=== PATIENT | male | born 1970 | race Caucasian/White ===

== ENCOUNTER 2016-08-15 19:33 | Inpatient (IN) | payer OTHER ==
[2016-08-15] MEDS ORDERED: NS 1,000 ML IV ONE (19:49)
--- NOTE | 2016-08-15 19:53 | EDPHY ---
H & P Stated Complaint: on cefdenir for cough, symptoms worsening Time Seen by Provider: 08/15/16 19:44 HPI/ROS: CHIEF COMPLAINT: Cough, fever HISTORY OF PRESENT ILLNESS: The patient presents to the ED with a one-week history of worsening cough and fever. The patient was clinically diagnosed with pneumonia approximately a week ago after having 2 weeks of cough. 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 The patient was started on cefdinir and has been on that for the past week without improvement. The patient complains of fever, myalgias, worsening dyspnea and fatigue. The patient does have a history of a 16 day hospitalization for pneumonia in 2012. He has not been treated for pneumonia with antibiotics since that hospitalization. The patient denies abdominal pain, vomiting or diarrhea. The patient denies additional complaints. The patient has moderate to severe dyspnea. In reviewing the patient's past medical records, the patient did have a pneumonia complicated by parapneumonic effusion during his hospitalization in 2012. The patient was treated with a chest tube as well as broad-spectrum antibiotics during that hospitalization. REVIEW OF SYSTEMS: A comprehensive 10 point review of systems is otherwise negative aside from elements mentioned in the history of present illness. Source: Patient Exam Limitations: No limitations - Personal History Current Tetanus/Diphtheria Vaccine: No Tetanus Vaccine Date: 2006 - Medical/Surgical History Hx Asthma: No Hx Chronic Respiratory Disease: No Hx Diabetes: No Hx Cardiac Disease: No Hx Renal Disease: No Hx Cirrhosis: No Hx Alcoholism: No Hx HIV/AIDS: No Hx Splenectomy or Spleen Trauma: No Other PMH: PMHx: pnuemonia with thoracentesis, thoracotomy 01/2013, sinus invertus, "internal organ reversal". PSHx: no other - Social History Smoking Status: Never smoked - Physical Exam Exam: General Appearance: Ill-appearing male, mild respiratory distress Eyes: Pupils equal and round no pallor or injection ENT, Mouth: Mucous membranes moist Respiratory: Tachypnea, rhonchorous breath sounds particularly at the left lung base, decreased breath sounds left lung base Cardiovascular: Tachycardic Gastrointestinal: Abdomen is soft and nontender, no masses, bowel sounds normal Neurological: A&O, normal motor function, normal sensory exam, normal cranial nerves Skin: Warm and dry, no rashes Musculoskeletal: Neck is supple nontender Extremities: symmetrical, full range of motion Psychiatric: Patient is oriented X 3, there is no agitation Constitutional: Initial Vital Signs Temperature (C) 39.4 C H 08/15/16 19:36 Heart Rate 124 H 08/15/16 19:36 Respiratory Rate 14 08/15/16 19:36 Blood Pressure 140/81 H 08/15/16 19:36 O2 Sat (%) 90 L 08/15/16 19:36 O2 Delivery Mode Room Air Allergies/Adverse Reactions: No Known Allergies Allergy (Unverified 01/07/13 23:52) Home Medications: Medication Instructions Recorded Cefdinir [Omnicef (*)] 600 mg PO DAILY 08/15/16 Medical Decision Making - Diagnostics EKG Interpretation: EKG: Complete interpretation has been separately recorded in the [facility] archive. Summary impression: Sinus tachycardia, rate 122 Imaging Results: Chest x-ray PA lateral: Images reviewed by myself, situs inversus noted, left lower lobe pneumonia. ED Course/Re-evaluation: The patient presents to emergency department with worsening fever, cough and dyspnea. The patient was noted be acutely hypoxemic upon arrival. The patient was placed on a air sampling and monitoring and received supplemental oxygen. I reviewed the patient's past medical records including his hospitalization from 2012. The patient's chest x-ray demonstrates evidence of a left lower lobe pneumonia. The patient had blood cultures x2 obtained. The patient will be started on vancomycin and Zosyn. The patient's initial venous lactate is reassuring at 1.3. Given the patient's hypoxemia, tachycardia and worsening symptoms while on appropriate oral antibiotics I do feel he should be admitted to the hospital for further evaluation. Consultation is made with Dr. Palma from the hospitalist service who will admit the patient this evening. The patient does have evidence of sepsis with SIRS (the tachycardia, leukocytosis and fever) + infection (pneumonia). There is no evidence of end- organ dysfunction, severe sepsis or septic shock. Differential Diagnosis: Differential diagnosis considered includes pneumonia, sepsis, severe sepsis, influenza, empyema - Data Points Laboratory Results: Laboratory Results 08/15/16 19:57 08/15/16 19:57 08/15/16 08/15/16 08/15/16 20:10 19:57 19:57 WBC 11.67 10^3/uL H 10^3/uL (3.80-9.50) RBC 4.35 10^6/uL L 10^6/uL (4.40-6.38) Hgb 12.9 g/dL L g/dL (13.7-17.5) Hct 39.4 % L % (40.0-51.0) MCV 90.6 fL fL (81.5-99.8) MCH 29.7 pg pg (27.9-34.1) MCHC 32.7 g/dL g/dL (32.4-36.7) RDW 13.5 % % (11.5-15.2) Plt Count 451 10^3/uL H 10^3/uL (150-400) MPV 9.0 fL fL (8.7-11.7) Neut % (Auto) 77.3 % H % (39.3-74.2) Lymph % (Auto) 11.1 % L % (15.0-45.0) [place] % (Auto) 7.2 % % (4.5-13.0) Eos % (Auto) 3.3 % % (0.6-7.6) Baso % (Auto) 0.4 % % (0.3-1.7) Nucleat RBC Rel Count 0.0 % % (0.0-0.2) Absolute Neuts (auto) 9.02 10^3/uL H 10^3/uL (1.70-6.50) Absolute Lymphs (auto) 1.30 10^3/uL 10^3/uL (1.00-3.00) Absolute Monos (auto) 0.84 10^3/uL H 10^3/uL (0.30-0.80) Absolute Eos (auto) 0.38 10^3/uL 10^3/uL (0.03-0.40) Absolute Basos (auto) 0.05 10^3/uL 10^3/uL (0.02-0.10) Absolute Nucleated RBC 0.00 10^3/uL 10^3/uL (0-0.01) Immature Gran % 0.7 % % (0.0-1.1) Immature Gran # 0.08 10^3/uL 10^3/uL (0.00-0.10) VBG Lactic Acid 1.3 mmol/L mmol/L (0.7-2.1) Sodium Potassium Chloride Carbon Dioxide Anion Gap BUN Creatinine Estimated GFR Glucose Calcium Influenza A & B (PCR) Pending 08/15/16 19:57 WBC RBC Hgb Hct MCV MCH MCHC RDW Plt Count MPV Neut % (Auto) Lymph % (Auto) [place] % (Auto) Eos % (Auto) Baso % (Auto) Nucleat RBC Rel Count Absolute Neuts (auto) Absolute Lymphs (auto) Absolute Monos (auto) Absolute Eos (auto) Absolute Basos (auto) Absolute Nucleated RBC Immature Gran % Immature Gran # VBG Lactic Acid Sodium 141 mEq/L mEq/L (134-144) Potassium 3.8 mEq/L mEq/L (3.5-5.2) Chloride 97 mEq/L mEq/L (97-110) Carbon Dioxide 29 mEq/l mEq/l (22-31) Anion Gap 15 mEq/L mEq/L (8-16) BUN 12 mg/dL mg/dL (7-23) Creatinine 0.9 mg/dL mg/dL (0.7-1.3) Estimated GFR > 60 Glucose 108 mg/dL H mg/dL (70-100) Calcium 9.0 mg/dL mg/dL (8.5-10.4) Influenza A & B (PCR) Medications Given: Discontinued Medications Sodium Chloride (Ns) 1,000 mls @ 0 mls/hr IV ONCE ONE PRN Reason: Wide Open Stop: 08/15/16 19:50 Last Admin: 08/15/16 20:14 Dose: 1,000 mls Departure - Departure Disposition: [facility] Inpatient Acute Clinical Impression: Pneumonia, Situs inversus, Sepsis Condition: Fair
--- NOTE | 2016-08-15 20:01 | CPEKG ---
Heart Rate: 122 RR Interval: 492 P-R Interval: 140 QRSD Interval: 90 QT Interval: 316 QTC Interval: 451 P Mcqueeney: 57 QRS Mcqueeney: 109 T Wave Mcqueeney: 48 EKG Severity - BORDERLINE ECG - EKG Impression: SINUS TACHYCARDIA EKG Impression: PROBABLE LEFT ATRIAL ABNORMALITY EKG Impression: CONSIDER RIGHT VENTRICULAR HYPERTROPHY Electronically Signed By: Nash Flores 15-Aug-2016 20:30:52
[2016-08-15 20:09] LABS: % IMMATURE GRANULYOCYTES 0.7 % (0.0-1.1); ABSOLUTE IMMATURE GRANULOCYTES 0.08 10^3/uL (0.00-0.10); ADD DIFF? NO; ADD MORPH? NO; ADD SCAN? NO; ATYPICAL LYMPHOCYTE FLAG 40 (0-99); FRAGMENT RBC FLAG 0 (0-99); HEMATOCRIT 39.4 % (40.0-51.0); HEMOGLOBIN 12.9 g/dL (13.7-17.5); LEFT SHIFT FLG 10 (0-99); LIPEMIA HEMOLYSIS FLAG 80 (0-99); MEAN CELL HEMOGLOBIN 29.7 pg (27.9-34.1); MEAN CELL HEMOGLOBIN CONCENTR. 32.7 g/dL (32.4-36.7); MEAN CELL VOLUME 90.6 fL (81.5-99.8); PLATELET CLUMPS FLAG 0 (0-99); PLATELET COUNT 451 10^3/uL (150-400); RED BLOOD CELL COUNT 4.35 10^6/uL (4.40-6.38); RED CELL DISTRIBUTION WIDTH 13.5 % (11.5-15.2)
[2016-08-15] MEDS ORDERED: VANCOMYCIN HCL/NORMAL SALINE 250 ML IV ONE (20:11)
[2016-08-15] MEDS ORDERED: PIPERACILLIN/TAZO 4.5 GM/DEX 100 ML IV ONE (20:11)
[2016-08-15] MEDS ORDERED: ACETAMINOPHEN 500 MG TAB ONE (20:16)
[2016-08-15] MEDS ORDERED: ACETAMINOPHEN 500 MG TAB PO ONE (20:29)
[2016-08-15 20:36] LABS: ANION GAP 15 mEq/L (8-16); CARBON DIOXIDE 29 mEq/l (22-31); CHLORIDE 97 mEq/L (97-110); CREATININE 0.9 mg/dL (0.7-1.3); GLOMERULAR FILTRATION RATE > 60; GLUCOSE 108 mg/dL (70-100); POTASSIUM 3.8 mEq/L (3.5-5.2); SODIUM 141 mEq/L (134-144)
[2016-08-15] MEDS ORDERED: AZITHROMYCIN IV 500 MG in D5W 250 ML IV SCH (21:00)
[2016-08-15] MEDS ORDERED: ONDANSETRON 4 MG/2 ML VIAL IVP PRN (21:05)
[2016-08-15] MEDS ORDERED: ONDANSETRON DISINTEGRATING 4 MG TAB PO PRN (21:05)
[2016-08-15] MEDS ORDERED: ALBUTEROL 3 ML DEYVIAL IH PRN (21:05)
[2016-08-15] MEDS ORDERED: NS 1,000 ML IV SCH (21:15)
--- NOTE | 2016-08-15 21:32 | GHP ---
[f rep st] HISTORY AND PHYSICAL DATE OF ADMISSION: 08/15/2016 CHIEF COMPLAINT: Shortness of breath and cough. HISTORY OF PRESENT ILLNESS: This is a 45-year-old male with a history of situs inversus and multipl e pneumonias, including a severe empyema several years ago. He states that 2 weeks ago, he was deve loping more sinus/upper respiratory tract type symptoms. His family had similar symptoms. He went to see his primary care doctor about a week ago who thought he had a sinus infection and he was star oracio on Omnicef. He states that he felt somewhat better after that, but then started developing feve rs and chills today. He has been coughing more over the last week. He does have sputum production. He has little bit of left-sided pleuritic chest pain which has resolved. He has had fevers and ch ills. He is feeling somewhat short of breath. REVIEW OF SYSTEMS: A 10-point review of systems was obtained, and other than as stated above, was n egative. PAST MEDICAL HISTORY: 1. Situs inversus. 2. Multiple episodes of pneumonia. SOCIAL HISTORY: No smoking or alcohol. 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 FAMILY HISTORY: Positive for diabetes with his mother. PHYSICAL EXAM: VITAL SIGNS: Temperature is 39.4, blood pressure 140/81, heart rate 124 oxygen satu ration is 90% on room air. GENERAL: The patient is well developed, in no apparent distress. HEENT : Nonicteric sclerae. Extraocular movements intact. Moist mucous membranes. NECK: Supple. No t hyromegaly. LUNGS: Good effort and some rhonchi especially on the left. CARDIOVASCULAR: Regular rate and rhythm. No murmurs or gallops. ABDOMEN: Positive bowel sounds. Soft, nontender, nondist ended. No hepatosplenomegaly. EXTREMITIES: No clubbing, cyanosis, or edema. SKIN: Without rash. Dry, intact. NEUROLOGIC: Alert and oriented x3. Moving all 4 extremities equally. PSYCH: Norm al mood and affect. LABS: White blood cell count is 11 with platelets of 451, hemoglobin 12.9. Lactate is normal. Samaria gary is also normal. Influenza is pending. Chest x-ray, personally reviewed and interpreted, shows situs inversus and what looks like an early right lower lobe pneumonia. ASSESSMENT: This is a 45-year-old male who presents with community-acquired pneumonia who has faile d outpatient treatment. PLAN: 1. Community-acquired pneumonia. The patient was treated with Omnicef, but not treated for atypica ls. He also started off with more sinus issues. Therefore, we will treat with both Invanz to add m ore anaerobic coverage, as well as azithromycin for atypical coverage. At this point, I do not thin k we should start with vancomycin. 2. Sepsis. The patient's lactate is normal, but he is tachycardic and has a fever. We will give I V fluids and continue to monitor. 3. Situs inversus. Apparently, this has predisposed him to multiple pneumonias. ADMISSION: Patient will be admitted under full admission status. The case was discussed with the E R physician. Old records were reviewed and summarized in the HPI. Chest x-ray was personally revie wed and interpreted. /[id number]/MODL
[2016-08-15] MEDS: ERTAPENEM 1 GM in NS 100 ML IV SCH (21:47)
[2016-08-15] MEDS: guaiFENesin 600 MG TAB.ER PO SCH (22:00)
[2016-08-15] MEDS: IBUPROFEN 200 MG TAB PO PRN (22:00)
[2016-08-15] MEDS: AZITHROMYCIN IV 500 MG in D5W 250 ML IV SCH (22:48)
[2016-08-16] MEDS: HYDROCODONE/APAP 5/325 TAB PO PRN ×2 (03:44→07:33)
[2016-08-16 05:38] LABS: % IMMATURE GRANULYOCYTES 0.7 % (0.0-1.1); ABSOLUTE IMMATURE GRANULOCYTES 0.06 10^3/uL (0.00-0.10); ADD DIFF? NO; ADD MORPH? NO; ADD SCAN? NO; ATYPICAL LYMPHOCYTE FLAG 30 (0-99); FRAGMENT RBC FLAG 0 (0-99); HEMATOCRIT 33.9 % (40.0-51.0); HEMOGLOBIN 10.6 g/dL (13.7-17.5); LEFT SHIFT FLG 10 (0-99); LIPEMIA HEMOLYSIS FLAG 80 (0-99); MEAN CELL HEMOGLOBIN CONCENTR. 31.3 g/dL (32.4-36.7); MEAN CELL VOLUME 92.9 fL (81.5-99.8); MEAN PLATELET VOLUME 9.5 fL (8.7-11.7); PLATELET CLUMPS FLAG 10 (0-99); PLATELET COUNT 365 10^3/uL (150-400); RED BLOOD CELL COUNT 3.65 10^6/uL (4.40-6.38); RED CELL DISTRIBUTION WIDTH 13.8 % (11.5-15.2)
[2016-08-16 06:00] LABS: ALANINE AMINOTRANSFERASE 146 IU/L (21-72); ALBUMIN 3.1 g/dL (3.5-5.0); ALKALINE PHOSPHATASE 200 IU/L (38-126); ANION GAP 10 mEq/L (8-16); ASPARTATE AMINOTRANSFERASE 57 IU/L (17-59); BILIRUBIN,TOTAL 0.5 mg/dL (0.1-1.4); CALCIUM 8.3 mg/dL (8.5-10.4); CARBON DIOXIDE 28 mEq/l (22-31); CHLORIDE 106 mEq/L (97-110); CREATININE 0.9 mg/dL (0.7-1.3); GLOMERULAR FILTRATION RATE > 60; GLUCOSE 88 mg/dL (70-100); POTASSIUM 4.3 mEq/L (3.5-5.2); SODIUM 144 mEq/L (134-144); TOTAL PROTEIN 6.3 g/dL (6.3-8.2)
--- NOTE | 2016-08-16 09:04 | HOSPPROG ---
Hospitalist Progress Note Assessment/Plan: # pneumonia - flu positive - start tamiflu - hx R sided empyema requiring CT in 2013 - cont tx for CAP # Kartagener's/Situs inversus # elevated LFTS - likely d/t above - recheck tomorrow # anemia, chronic and stable # sepsis - resolved ## chart reviewed CXR personally reviewed Subjective: maybe feeling better than yesterday; L pleuritic CP; ongoing cough Objective: Vital Signs Temp Pulse Resp BP Pulse Ox 36.9 C 93 16 105/71 96 08/16/16 07:51 08/16/16 07:51 08/16/16 07:51 08/16/16 07:51 08/16/16 07:51 Laboratory Results 08/16/16 04:18 08/16/16 04:18 08/15/16 08/16/16 08/17/16 05:59 05:59 05:59 Intake Total 800 Output Total 350 Balance 450 - Physical Exam Constitutional: no apparent distress, appears nourished Cardiovascular: regular rate and rhythym, no murmur, rub, or gallop, other (R sided heart sounds) Respiratory: no respiratory distress, other (diffuse bilat rhonchi; L basilar tubular breath sounds) Gastrointestinal: normoactive bowel sounds, soft, non-tender abdomen, no palpable masses ICD10 Worksheet Patient Problems: Problems Problem Status Onset Pneumonia Acute Situs inversus Acute Sepsis Acute
[2016-08-16] MEDS: ERTAPENEM 1 GM in NS 100 ML IV SCH (10:06)
[2016-08-16] MEDS: ENOXAPARIN 40 MG/0.4 ML SYR SC SCH (10:07)
[2016-08-16] MEDS: guaiFENesin 600 MG TAB.ER PO SCH ×2 (10:07→21:15)
[2016-08-16] MEDS: OSELTAMIVIR PHOSPHATE 75 MG CAP PO SCH ×2 (10:08→18:02)
[2016-08-16] MEDS: ACETAMINOPHEN 325 MG TAB PO PRN (15:37)
[2016-08-16] MEDS ORDERED: NS 1,000 ML IV SCH (16:00)
[2016-08-16] MEDS ORDERED: IOPAMIDOL (ISOVUE 370) 100 ML BTL IV ONE (16:01)
[2016-08-16] MEDS: AZITHROMYCIN IV 500 MG in D5W 250 ML IV SCH (21:15)
[2016-08-17] MEDS: HYDROCODONE/APAP 5/325 TAB PO PRN (00:08)
[2016-08-17] MEDS: IBUPROFEN 200 MG TAB PO PRN (04:29)
[2016-08-17 04:56] LABS: % IMMATURE GRANULYOCYTES 0.7 % (0.0-1.1); ABSOLUTE IMMATURE GRANULOCYTES 0.07 10^3/uL (0.00-0.10); ADD DIFF? NO; ADD MORPH? NO; ADD SCAN? NO; ATYPICAL LYMPHOCYTE FLAG 80 (0-99); FRAGMENT RBC FLAG 0 (0-99); HEMATOCRIT 32.5 % (40.0-51.0); HEMOGLOBIN 10.6 g/dL (13.7-17.5); LEFT SHIFT FLG 10 (0-99); LIPEMIA HEMOLYSIS FLAG 80 (0-99); MEAN CELL HEMOGLOBIN 29.7 pg (27.9-34.1); MEAN CELL HEMOGLOBIN CONCENTR. 32.6 g/dL (32.4-36.7); PLATELET CLUMPS FLAG 0 (0-99); PLATELET COUNT 346 10^3/uL (150-400); RED BLOOD CELL COUNT 3.57 10^6/uL (4.40-6.38); RED CELL DISTRIBUTION WIDTH 13.7 % (11.5-15.2)
[2016-08-17 05:22] LABS: ALANINE AMINOTRANSFERASE 122 IU/L (21-72); ALBUMIN 3.2 g/dL (3.5-5.0); ALKALINE PHOSPHATASE 192 IU/L (38-126); ANION GAP 9 mEq/L (8-16); ASPARTATE AMINOTRANSFERASE 44 IU/L (17-59); BILIRUBIN,TOTAL 0.5 mg/dL (0.1-1.4); CALCIUM 8.4 mg/dL (8.5-10.4); CARBON DIOXIDE 29 mEq/l (22-31); CHLORIDE 102 mEq/L (97-110); CREATININE 0.9 mg/dL (0.7-1.3); GLOMERULAR FILTRATION RATE > 60; GLUCOSE 94 mg/dL (70-100); POTASSIUM 4.5 mEq/L (3.5-5.2); SODIUM 140 mEq/L (134-144); TOTAL PROTEIN 6.2 g/dL (6.3-8.2)
[2016-08-17] MEDS: OSELTAMIVIR PHOSPHATE 75 MG CAP PO SCH ×2 (07:26→18:27)
[2016-08-17] MEDS: guaiFENesin 600 MG TAB.ER PO SCH ×2 (07:26→20:28)
[2016-08-17] MEDS: ERTAPENEM 1 GM in NS 100 ML IV SCH (07:26)
[2016-08-17] MEDS: ENOXAPARIN 40 MG/0.4 ML SYR SC SCH (07:27)
[2016-08-17] MEDS: ACETAMINOPHEN 325 MG TAB PO PRN ×3 (07:41→19:21)
--- NOTE | 2016-08-17 10:14 | HOSPPROG ---
Hospitalist Progress Note Assessment/Plan: # pneumonia - suspect influenza and bacterial - bronchiectasis on CT - hx R sided empyema requiring CT in 2013 - cont tamiflu and CAP treatment - will d/w pulm # Kartagener's/Situs inversus # elevated LFTS - likely d/t influenza - recheck tomorrow # anemia, chronic and stable # sepsis - resolved Subjective: overall feels better, but ongoing L pleuritic pain Objective: Vital Signs Temp Pulse Resp BP Pulse Ox 36.6 C 79 16 117/73 93 08/17/16 07:44 08/17/16 07:44 08/17/16 07:44 08/17/16 07:44 08/17/16 07:44 Microbiology 08/16/16 20:29 - Final Sputum, Expectorated 08/16/16 00:10 Respiratory Panel (PCR) - Final Nasal, Sinus - Swab Influenza Virus Type B Laboratory Results 08/17/16 04:26 08/17/16 04:26 08/16/16 08/17/16 08/18/16 05:59 05:59 05:59 Intake Total 800 1285 Output Total 350 Balance [address] personally reviewed CXR personally reviewed - Physical Exam Constitutional: uncomfortable Cardiovascular: regular rate and rhythym, no murmur, rub, or gallop, other (R sided S1S2) Respiratory: no respiratory distress, no rales or rhonchi, clear to auscultation Gastrointestinal: normoactive bowel sounds, soft, non-tender abdomen, no palpable masses ICD10 Worksheet Patient Problems: Problems Problem Status Onset Pneumonia Acute Situs inversus Acute Sepsis Acute
[2016-08-17] MEDS: IPRATROPIUM/ALBUTEROL 3 ML DEYVIAL IH SCH ×2 (12:35→17:56)
[2016-08-17] MEDS: ACETYLCYSTEINE 20% IH/PO 30 ML VIAL IH SCH ×2 (12:46→17:54)
[2016-08-17] MEDS: AZITHROMYCIN IV 500 MG in D5W 250 ML IV SCH (20:28)
[2016-08-18] MEDS: IPRATROPIUM/ALBUTEROL 3 ML DEYVIAL IH SCH ×3 (00:11→10:49)
[2016-08-18 05:03] LABS: % IMMATURE GRANULYOCYTES 0.7 % (0.0-1.1); ABSOLUTE IMMATURE GRANULOCYTES 0.07 10^3/uL (0.00-0.10); ADD DIFF? NO; ADD MORPH? NO; ADD SCAN? NO; ATYPICAL LYMPHOCYTE FLAG 50 (0-99); FRAGMENT RBC FLAG 0 (0-99); HEMATOCRIT 35.3 % (40.0-51.0); HEMOGLOBIN 11.5 g/dL (13.7-17.5); LEFT SHIFT FLG 0 (0-99); LIPEMIA HEMOLYSIS FLAG 80 (0-99); MEAN CELL HEMOGLOBIN 29.4 pg (27.9-34.1); MEAN CELL HEMOGLOBIN CONCENTR. 32.6 g/dL (32.4-36.7); MEAN CELL VOLUME 90.3 fL (81.5-99.8); MEAN PLATELET VOLUME 9.1 fL (8.7-11.7); PLATELET CLUMPS FLAG 0 (0-99); PLATELET COUNT 433 10^3/uL (150-400); RED BLOOD CELL COUNT 3.91 10^6/uL (4.40-6.38); RED CELL DISTRIBUTION WIDTH 13.5 % (11.5-15.2)
[2016-08-18 05:10] LABS: ALANINE AMINOTRANSFERASE 123 IU/L (21-72); ALBUMIN 3.3 g/dL (3.5-5.0); ALKALINE PHOSPHATASE 222 IU/L (38-126); ANION GAP 9 mEq/L (8-16); ASPARTATE AMINOTRANSFERASE 50 IU/L (17-59); BILIRUBIN,TOTAL 0.4 mg/dL (0.1-1.4); CALCIUM 8.8 mg/dL (8.5-10.4); CARBON DIOXIDE 27 mEq/l (22-31); CHLORIDE 104 mEq/L (97-110); CREATININE 0.8 mg/dL (0.7-1.3); GLOMERULAR FILTRATION RATE > 60; GLUCOSE 94 mg/dL (70-100); POTASSIUM 4.4 mEq/L (3.5-5.2); SODIUM 140 mEq/L (134-144); TOTAL PROTEIN 6.9 g/dL (6.3-8.2)
[2016-08-18] MEDS: ACETYLCYSTEINE 20% IH/PO 30 ML VIAL IH SCH ×3 (05:45→14:01)
[2016-08-18] MEDS: ERTAPENEM 1 GM in NS 100 ML IV SCH (07:55)
[2016-08-18] MEDS: ENOXAPARIN 40 MG/0.4 ML SYR SC SCH (07:56)
[2016-08-18] MEDS: guaiFENesin 600 MG TAB.ER PO SCH (07:56)
[2016-08-18] MEDS: OSELTAMIVIR PHOSPHATE 75 MG CAP PO SCH (07:56)
[2016-08-18] MEDS: ACETAMINOPHEN 325 MG TAB PO PRN (07:56)
[2016-08-18 08:00] VITALS: RESP 18
[2016-08-18 11:19] VITALS: BP 130/68; PULSE 90; TEMP 98.4; O2SAT 95
--- NOTE | 2016-08-18 14:23 | GDS ---
[f rep st] DISCHARGE SUMMARY DIAGNOSES: 1. Community-acquired pneumonia. 2. Kartagener syndrome/situs inversus. 3. Bronchiectasis. 4. Elevated LFTs. 5. Anemia. 6. Sepsis. 7. Influenza B. HOSPITAL COURSE: A 45-year-old man with a history of Kartagener's as well as a right-sided empyema which required VATS decortication about 4 years ago. Presents with a left-sided pneumonia. This is associated with some pleuritic pain. He was treated with azithromycin, as well as Invanz with significant clinical improvement. Notably, he also had a positive influenza PCR, has also been treated with Tamiflu. We attempter multiple modes of pulmonary hygiene including percussion vest, mucomyst, mucinex. He did not tolerate any of these very well. On the day of discharge, he is feeling better. He still has some left-sided pleuritic pain, but it has been slowly improving. I informally discussed him with both Dr. Akers as well as Dr. Reilly (Dr. Reilly has seen him as an outpatient), and Dr. Reilly is willing to see him next week. I have given the patient Dr. Reilly's information to make a followup appointment with him. I will discharge him with a somewhat prolonged course of treatment for community- acquired pneumonia, as I believe that there is a bacterial component to this. I will give him a total of 14 days of antibiotics since he started IV antibiotics as an inpatient. He will be discharged to complete a course of Levaquin. I have also given him Tamiflu to complete a total of a 5-day course. I offered to keep him in the hospital longer given his history but he is anxious for discharge. I wrote a prescription for him to get a followup chest x-ray prior to seeing Dr. Reilly. He should do this the day before. I also wrote him a note excusing him for work. DISPOSITION: He is discharged home in stable condition. BILLING: I spent more than 30 minutes on the day of discharge coordinating care. /[id number]/MODL MTDD
== END 2016-08-18 15:58 | disposition home or self-care (01) | DRG 871 ==
LOC: F3E 21:15
PROVIDERS: ADMIT Internal Medicine; ATTEND Student in an Organized Health Care Education/Training Program
DX: A41.89 Other specified sepsis (principal); J10.08 Influenza due to other identified influenza virus with other specified pneumonia; J15.9 Unspecified bacterial pneumonia; B97.89 Other viral agents as the cause of diseases classified elsewhere; Q89.3 Situs inversus; J47.9 Bronchiectasis, uncomplicated; D64.9 Anemia, unspecified; Z87.01 Personal history of pneumonia (recurrent)
CPT/HCPCS: 87449-90; 96374; J0456; J1335; J1650; J2543; J3370; Q9967

== ENCOUNTER → 2016-08-26 | Outpatient (CLI) | payer OTHER | LOC: FIMAGING 10:31 | PROVIDERS: ATTEND Student in an Organized Health Care Education/Training Program | DX: Z09 Encounter for follow-up examination after completed treatment for conditions other than malignant neoplasm (principal); Q89.3 Situs inversus ==

== ENCOUNTER → 2016-11-10 | Outpatient (CLI) | payer OTHER | LOC: FIMAGING 10:57 | PROVIDERS: ATTEND Internal Medicine Pulmonary Disease | DX: J47.9 Bronchiectasis, uncomplicated (principal); J90 Pleural effusion, not elsewhere classified; Q89.3 Situs inversus ==

== ENCOUNTER 2018-03-19 12:07 | Day surgery (SDC) | payer OTHER ==
[2018-03-19] MEDS ORDERED: LR 1,000 ML IV ONE (12:25)
[2018-03-19] MEDS ORDERED: ALBUTEROL 3 ML DEYVIAL IH ONE (12:25)
[2018-03-19] MEDS ORDERED: LIDOCAINE 1% 300 MG/30 ML SDV ONE (12:44)
[2018-03-19] MEDS ORDERED: EPINEPHrine 1 MG/ML INJ ONE (12:44)
[2018-03-19] MEDS ORDERED: MIDAZOLAM 2 MG/2 ML VIAL ONE (13:16)
[2018-03-19] MEDS ORDERED: fentaNYL 100 MCG/2 ML INJ ONE (13:16)
[2018-03-19] MEDS ORDERED: fentaNYL 100 MCG/2 ML INJ IVP ONE (13:47)
[2018-03-19] MEDS ORDERED: MIDAZOLAM 2 MG/2 ML VIAL IVP ONE (13:47)
[2018-03-19] MEDS ORDERED: LIDOCAINE 1% 300 MG/30 ML SDV MISC ONE (13:52)
[2018-03-19] MEDS ORDERED: LIDOCAINE HCL 4% TOPICAL SOLN 50ML MM ONE (13:53)
[2018-03-19 15:44] VITALS: BP 102/66
--- NOTE | 2018-03-20 06:32 | GPN ---
PROCEDURE: Bronchoscopy. INDICATION: New left upper lobe infiltrate in a patient with situs inversus and bronchiectasis. He has a history of previous pneumonias and empyema. He was recently on ciprofloxacin for purulent coug h and sputum. This was associated with a posterior left upper lobe pleural rub. A CT scan was thus obtained which showed the new infiltrate. This procedure is being done to provide a bacteriologic di agnosis. PROCEDURE NOTE: The procedure was performed in the endoscopy unit. Informed consent was obtained fr om the patient. Appropriate time-out was performed. N95 masks were worn. A negative pressure room was used. Topical anesthesia included 4 mL of 4% lidocaine to the posterior oropharynx and approximately 25 mL of 1% lidocaine to the vocal cords, trachea and lower tracheobronchial tree. Conscious sedation incl uded 5 mg of Versed and 125 mcg of fentanyl. The fiberoptic bronchoscope was passed via bite block orally into the larynx. The vocal cords were i dentified and cannulated. The bronchoscope was then advanced into the trachea and in the lower trach eobronchial tree bilaterally. There were loose purulent secretions found in the distal trachea and i n the lower tracheobronchial tree bilaterally. These were removed with suction and lavage and combin ed. Bronch wash/bronchoalveolar lavage samples from the left upper lobe area were obtained. Because of his situs inversus, this actually had the anatomy of a standard right upper lobe. Following wash ing and lavage, a sterile brush biopsy sample was obtained from left upper lobe segments. Following this, a cytology brush biopsy sample was obtained from the same upper lobe segments. Appropriate cul tures and cytologies were sent. The patient tolerated the procedure well. There were no complications. Oxygen saturations on supple mental oxygen and vital signs remained normal throughout the procedure. IMPRESSION: 1. Reversed anatomy consistent with situs inversus is present. 2. No endobronchial abnormalities are present. 3. Purulent secretions were found bilaterally. Appropriate microbiologic and cytologic samples were obtained. /[id number]/MODL
== END 2018-03-19 15:40 | disposition home or self-care (01) ==
LOC: FSGY 12:07
PROVIDERS: ATTEND Internal Medicine Pulmonary Disease
DX: Q89.3 Situs inversus (principal); J47.9 Bronchiectasis, uncomplicated; Z87.01 Personal history of pneumonia (recurrent); R09.89 Other specified symptoms and signs involving the circulatory and respiratory systems
CPT/HCPCS: J0171; J2250; J3010; J7613

== ENCOUNTER → 2018-04-21 | Outpatient (CLI) | payer OTHER | LOC: FIMAGING 11:53 | PROVIDERS: ATTEND Internal Medicine Pulmonary Disease | DX: J18.9 Pneumonia, unspecified organism (principal); J47.9 Bronchiectasis, uncomplicated; Q89.3 Situs inversus ==

== ENCOUNTER → 2018-07-09 | Outpatient (CLI) | payer OTHER | LOC: FIMAGING 07:55 | PROVIDERS: ATTEND Internal Medicine Pulmonary Disease | DX: J47.9 Bronchiectasis, uncomplicated (principal) ==

== ENCOUNTER 2018-10-10 13:23 | Emergency (ER) | payer OTHER ==
--- NOTE | 2018-10-10 13:49 | EDPHY ---
HPI/HX/ROS/PE/MDM Narrative: CHIEF COMPLAINT: "I have pneumonia" HPI: The patient is a 48-year-old male with a history of situs inversus and frequent pneumonias related to same. His last antibiotic course was approximately three months ago. He just returned from a trip to [place] and began to develop symptoms that he reports as typical of pneumonia as he was returning home, namely fever, chills, right-sided chest tightness and productive cough. He denies leg swelling. REVIEW OF SYSTEMS: Aside from elements discussed in the HPI, a comprehensive 10-point review of systems was reviewed and is negative. PMH: Kartagener's syndrome, frequent PNA SOCIAL HISTORY: . Lives in [place]. PHYSICAL EXAM: General:Patient is alert, in no acute distress. ENT:Eyes are normal to inspection. ENT inspection normal. Neck: Normal inspection. Full range of motion. Respiratory:No respiratory distress. Breath sounds normal bilaterally. Cardiovascular: Tachycardic. Strong peripheral pulses. Normal cap refill. Heart sounds reversed. Abdomen:The abdomen is nontender to palpation. There are no peritoneal signs. There are normal bowel sounds. Back: Normal to inspection. No tenderness to palpation. Skin: Normal color. No rash. Warm and dry. Extremities: Normal appearance. Full range of motion. Neuro: Oriented x3. Normal motor function. Normal sensory function. MDM: This patient has a history of recurrent pneumonia and presents to the ER today with the same. He states that Augmentin seems to be the only antibiotic that works for him. His lactate is normal which is reassuring. His room air saturation is right around 90-92% on my re-evaluation. I did offer him admission to the hospital for IV antibiotics and close monitoring, but he would prefer to try and go home and see if he can improve things with oral antibiotics. Given recent travel, I considered PE, but given the patient's history of frequent pneumonia, fever an obvious infiltrate on x-ray, I think this is much less likely. The patient is comfortable with plan for discharge home after a dose of IV Unasyn here in the ED. - Data Points Laboratory Results: Laboratory Results 10/10/18 13:50 10/10/18 13:50 10/10/18 10/10/18 10/10/18 13:50 13:50 13:50 WBC 25.93 10^3/uL H 10^3/uL (3.80-9.50) RBC 4.20 10^6/uL L 10^6/uL (4.40-6.38) Hgb 12.7 g/dL L g/dL (13.7-17.5) Hct 37.4 % L % (40.0-51.0) MCV 89.0 fL fL (81.5-99.8) MCH 30.2 pg pg (27.9-34.1) MCHC 34.0 g/dL g/dL (32.4-36.7) RDW 13.2 % % (11.5-15.2) Plt Count 343 10^3/uL 10^3/uL (150-400) MPV 9.2 fL fL (8.7-11.7) Neut % (Auto) Pending Lymph % (Auto) Pending [place] % (Auto) Pending Eos % (Auto) Pending Baso % (Auto) Pending Nucleat RBC Rel Count Pending Absolute Neuts (auto) Pending Absolute Lymphs (auto) Pending Absolute Monos (auto) Pending Absolute Eos (auto) Pending Absolute Basos (auto) Pending Absolute Nucleated RBC Pending Immature Gran % Pending Immature Gran # Pending Platelet Estimate Pending VBG Lactic Acid 1.1 mmol/L mmol/L (0.7-2.1) Sodium 133 mEq/L L mEq/L (135-145) Potassium 4.0 mEq/L mEq/L (3.5-5.2) Chloride 99 mEq/L mEq/L (97-110) Carbon Dioxide 24 mEq/l mEq/l (22-31) Anion Gap 10 mEq/L mEq/L (6-14) BUN 13 mg/dL mg/dL (7-23) Creatinine 1.0 mg/dL mg/dL (0.7-1.3) Estimated GFR > 60 Glucose 111 mg/dL H mg/dL (70-100) Calcium 8.8 mg/dL mg/dL (8.5-10.4) Medications Given: Discontinued Medications Acetaminophen (Tylenol) 1,000 mg PO EDNOW ONE Stop: 10/10/18 14:01 Last Admin: 10/10/18 14:04 Dose: 1,000 mg Sodium Chloride (Ns) 1,000 mls @ 0 mls/hr IV EDNOW ONE; Wide Open PRN Reason: Protocol Stop: 10/10/18 14:01 Last Admin: 10/10/18 14:04 Dose: 1,000 mls General Time Seen by Provider: 10/10/18 13:35 Initial Vital Signs: Initial Vital Signs Temperature (C) 37.9 C 10/10/18 13:27 Heart Rate 118 H 10/10/18 13:27 Respiratory Rate 20 10/10/18 13:27 Blood Pressure 135/72 H 10/10/18 13:27 O2 Sat (%) 86 L 10/10/18 13:27 O2 Delivery Mode Nasal Cannula O2 (L/minute) 2 Allergies/Adverse Reactions: No Known Allergies Allergy (Verified 10/10/18 13:26) Home Medications: Medication Instructions Recorded Aspirin 81mg (*) 03/18/18 Breo Ellipta 100-25 Mcg INH 03/18/18 Herbals/Supplements -Info Only 03/18/18 Proair Hfa 03/18/18 Amoxicillin/Clavulanate Pot 875 mg PO BID #20 tab 10/10/18 [Augmentin 875Mg] Departure - Departure Disposition: Home, Routine, Self-Care Clinical Impression: Pneumonia, Situs inversus Condition: Good Instructions: Pneumonia (ED) Additional Instructions: Follow-up with your primary physician tomorrow. Return to the emergency department for fever, shortness of breath, chest pain or failure to improve. Referrals: Pancho Cervantes DO [Primary Care Provider] - As per Instructions Prescriptions: Amoxicillin/Clavulanate Pot [Augmentin 875Mg] 875 mg PO BID #20 tab
[2018-10-10] MEDS ORDERED: ACETAMINOPHEN 500 MG TAB PO ONE (14:00)
[2018-10-10] MEDS ORDERED: NS 1,000 ML IV ONE (14:00)
[2018-10-10 14:03] LABS: PLATELET COUNT 343 10^3/uL (150-400)
[2018-10-10] MEDS ORDERED: AMPICILLIN/SULBACTAM 3 GM in NS 100 ML IV ONE (14:21)
[2018-10-10 15:34] VITALS: BP 130/68
== END 2018-10-10 15:34 | disposition home or self-care (01) ==
DX: J18.9 Pneumonia, unspecified organism (principal); Q89.3 Situs inversus
CPT/HCPCS: 96374; J0295